=== PATIENT | male | born 1985 | race American Indian/Alaskan Native ===

== ENCOUNTER 2018-10-23 01:49 | Emergency (ER) | payer OTHER ==
[2018-10-23 01:50] VITALS: BMI 36.7
[2018-10-23 01:57] VITALS: RESP 18
[2018-10-23] MEDS ORDERED: DiphenhydrAMINE 50 mg/ml Inj IVP STA (02:11)
--- NOTE | 2018-10-23 02:21 | ED PDOC ---
Arrival/HPI - General Chief Complaint: Headache Time Seen by Provider: 10/23/18 02:18 Historian: Patient - Critical Care Narrative Critical Care (Text): 10/23/18 02:18 Patient is a 33M w/ no significant PMH presenting to [facility] ED w/ complaints of headache over the past 3 days. Patient reported that headache is a squeezing sensation which comes and goes has been progressively worsening over the past 3 days. Reports that sensation worsens whenever patient undergoes vagal maneuver or bends down/forward. He denies any personal hx of migraine or hypertension. Patient denies family hx of migraine, does report family hx of [place]. No complaints of tinnitus, visual disturbances, focal deficit offered; Denies any cp, sob, cough, abd pain, n/v/d/c. Remainder 12 system ros is otherwise negative. - History of Present Illness Time/Duration: Prior to Arrival, < week Symptom Onset: Gradual Symptom Course: Worsening Quality: Pressure Past Medical History - Provider Review Nursing Documentation Reviewed: Yes - Past History Past History: No Previous - Infectious Disease Hx of Infectious Diseases: None - Tetanus Immunization Tetanus Immunization: Up to Date - Cardiac Hx Cardiac Disorders: No - Neurological Hx Headaches: Yes - Psychiatric Hx Depression: No Hx Emotional Abuse: No Hx Physical Abuse: No Hx Substance Use: No - Past Surgical History Past Surgical History: No Previous - Anesthesia Hx Anesthesia: No - Suicidal Assessment Feels Threatened In Home Enviroment: No Family/Social History - Physician Review Nursing Documentation Reviewed: Yes Family/Social History: CAD/LA Smoking Status: Never Smoked Hx Alcohol Use: No Hx Substance Use: No Hx Substance Use Treatment: No Allergies/Home Meds Allergies/Adverse Reactions: Allergies No Known Allergies Allergy (Verified 10/23/18 01:57) Home Medications: Home Meds Medication Instructions Recorded Confirmed No Known Home Med 10/17/12 10/23/18 Review of Systems - Physician Review All systems were reviewed & negative as marked: Yes - Review of Systems Constitutional: Normal Eyes: Normal. absent: Vision Changes, Photophobia, Eye Pain ENT: Normal. absent: Hearing Changes, Tinnitus Respiratory: Normal. absent: SOB Cardiovascular: Normal. absent: Chest Pain Gastrointestinal: Normal Genitourinary Male: Normal Musculoskeletal: Normal Skin: Normal Neurological: Headache. absent: Dizziness, Focal Weakness, Speech Changes Endocrine: Normal Hemo/Lymphatic: Normal Psychiatric: Normal Physical Exam Vital Signs Temp Pulse Resp BP Pulse Ox 10/23/18 01:56 98.6 F 68 18 165/93 H 98 Temperature: Afebrile Blood Pressure: Hypertensive Pulse: Regular Respiratory Rate: Normal Appearance: Positive for: Well-Appearing, Non-Toxic, Comfortable Pain Distress: None Mental Status: Positive for: Alert and Oriented X 3 - Systems Exam Head: Present: Atraumatic, Normocephalic Pupils: Present: PERRL Extroacular Muscles: Present: EOMI Conjunctiva: Present: Normal Mouth: Present: Moist Mucous Membranes Neck: Present: Normal Range of Motion Respiratory/Chest: Present: Clear to Auscultation, Good Air Exchange. No: Respiratory Distress, Accessory Muscle Use Cardiovascular: Present: Regular Rate and Rhythm, Normal S1, S2. No: Murmurs Abdomen: No: Tenderness, Distention, Peritoneal Signs Back: Present: Normal Inspection Upper Extremity: Present: Normal Inspection. No: Cyanosis, Edema Lower Extremity: Present: Normal Inspection. No: Edema Neurological: Present: GCS=15, CN II-XII Intact, Speech Normal Skin: Present: Warm, Dry, Normal Color. No: Rashes Psychiatric: Present: Alert, Oriented x 3, Normal Insight, Normal Concentration Medical Decision Making ED Course and Treatment: 10/23/18 02:22 Impression: 33M w/o significant pmh complaining of headache; no significant findings one examination however he is hypertensive at time of evaluation. R/o HTN Urgency Plan: Hydralazine Benadryl Toradol CBC/CMP Trop 10/23/18 03:22 Symptoms improved labs wnl will discharge w/ follow up to [facility] care as patient does not have insurance or primary will require intermediate frame tender hypertensive control/ antihypertensive - Medication Orders Current Medication Orders: Discontinued Medications Diphenhydramine HCl (Benadryl) 25 mg IVP STAT STA Stop: 10/23/18 02:12 Hydralazine HCl (Apresoline) 5 mg IVP STAT ONE Stop: 10/23/18 02:16 Ketorolac Tromethamine (Toradol) 30 mg IVP STAT STA Stop: 10/23/18 02:12 Metoclopramide HCl (Reglan) 10 mg IVP STAT STA Stop: 10/23/18 02:12 Disposition/Present on Arrival - Present on Arrival Any Indicators Present on Arrival: No History of DVT/PE: No History of Uncontrolled Diabetes: No Urinary Catheter: No History of Decub. Ulcer: No History Surgical Site Infection Following: None - Disposition Have Diagnosis and Disposition been Completed?: Yes Diagnosis: Hypertension Disposition: HOME/ ROUTINE Disposition Time: 03:24 Patient Plan: Discharge Patient Problems: Current Active Problems Problem Status Onset Hypertension Acute Condition: STABLE Discharge Instructions (ExitCare): High Blood Pressure (DC), DASH Diet Referrals: Anita Burton MD [Medical Doctor] - Follow up with primary Forms: [employer] (Algerian)
[2018-10-23 02:37] LABS: BASO # 0.04 {null, K/mm3} (0.0-2.0); BASO % 0.8 % (0.0-3.0); EOS # 0.2 (0.0-0.7); EOS % 3.3 % (1.5-5.0); HEMOGLOBIN 14.5 g/dL (14.0-18.0); LYMPH # 2.4 (1.2-3.4); LYMPH % 46.5 % (22.0-35.0); MEAN CORPUSCULAR HEMOGLOBIN 31.2 pg (25.0-35.0); MEAN CORPUSCULAR HGB CONC 34.3 g/dl (31.0-37.0); MEAN PLATELET VOLUME 10.6 fl (7.0-11.0); MONO # 0.4 (0.1-0.6); MONO % 7.6 % (1.0-6.0); RBC 4.65 {null, 10^6/uL} (3.5-6.1); RED CELL DISTRIBUTION WIDTH 13.7 % (11.5-14.5); WHITE BLOOD COUNT 5.2 {null, 10^3/uL} (4.5-11.0)
[2018-10-23 02:42] LABS: ALB/GLOB RATIO 1.4 (1.1-1.8); ALBUMIN 4.7 g/dL (3.0-4.8); BLOOD UREA NITROGEN 13 mg/dL (7-21); CALCIUM 9.1 mg/dL (8.4-10.5); GFR NON-AFRICAN AMERICAN > 60
[2018-10-23 02:53] LABS: B-TYPE NATRIURETIC PEPTIDE 29.3 pg/mL (0-450); TROPONIN I < 0.01 ng/mL
[2018-10-23 02:59] LABS: ALT/SGPT 32 U/L (7-56); AST/SGOT 47 U/L (17-59)
[2018-10-23 04:17] VITALS: BP 119/73; PULSE 76; TEMP 98; O2SAT 99
== END 2018-10-23 04:00 | disposition home or self-care (01) ==
LOC: ED 01:49
DX: I10 Essential (primary) hypertension (principal); Z82.49 Family history of ischemic heart disease and other diseases of the circulatory system
CPT/HCPCS: 80053; 83880; 84484; 85025; 96374; 96375; 99285; J0360; J1200; J1885; J2765